=== PATIENT | female | born 1930 | race Hispanic/Latino ===

== ENCOUNTER 2017-03-26 09:11 | Emergency (ER) | payer MEDICARE, BC ==
[2017-03-26 09:35] VITALS: PULSE 82; RESP 17; TEMP 98.4; O2SAT 98
--- NOTE | 2017-03-26 09:39 | C.PDOC ---
History Of Present Illness 86 yr old female presents to the ER with complaints of worsening painful rash to the right side for the past 2 days. Patient denies any associated symptoms, fever, chest pain, SOB, vision changes, nausea, vomiting or headache. Time Seen by Provider: 03/26/17 09:18 Chief Complaint (Nursing): Abnormal Skin Integrity History Per: Patient History/Exam Limitations: no limitations Onset/Duration Of Symptoms: Days (Worsening for 2 days ) Current Symptoms Are (Timing): Still Present Past Medical History Reviewed: Historical Data, Nursing Documentation, Vital Signs Vital Signs: Last Vital Signs Temp 98.4 F 03/26/17 09:33 Pulse 82 03/26/17 09:33 Resp 17 03/26/17 09:33 BP Pulse Ox 98 03/26/17 09:45 - Medical History PMH: HTN, Hypercholesterolemia, Hyperthyroidism - [facility] Procedures CLOSURE SKIN & SUBCUTANEOUS NEC (04/23/15) TETANUS TOXOID ADMINIST (04/23/15) Family History: States: No Known Family Hx - Social History Hx Alcohol Use: No Hx Substance Use: No - Immunization History Hx Tetanus Toxoid Vaccination: No Hx Influenza Vaccination: No Hx Pneumococcal Vaccination: No Review Of Systems Except As Marked, All Systems Reviewed And Found Negative. Constitutional: Negative for: Fever Eyes: Negative for: Vision Change Cardiovascular: Negative for: Chest Pain Respiratory: Negative for: Shortness of Breath Gastrointestinal: Negative for: Nausea, Vomiting Skin: Positive for: Rash (Painful rash to the right side) Neurological: Negative for: Headache Physical Exam - Physical Exam Appears: Non-toxic, No Acute Distress Skin: Warm, Dry, Rash (Visicular rash to the right lateral abdomen, right chest wall, extending to the back in a dermatomal distribution.) Head: Atraumatic, Normacephalic Eye(s): bilateral: Normal Inspection, PERRL, EOMI Oral Mucosa: Moist Tongue: Normal Appearing, No Swelling Lips: Normal Appearing, No Swelling Throat: Normal, No Erythema, No Exudate Chest: Symmetrical, No Tenderness Cardiovascular: Rhythm Regular, No Murmur Respiratory: Normal Breath Sounds, No Rales, No Wheezing Gastrointestinal/Abdominal: Normal Exam, Soft, No Tenderness, No Guarding, No Rebound Extremity: Normal ROM, No Tenderness, No Deformity, No Swelling Neurological/Psych: Oriented x3, Normal Speech, Normal Motor ED Course And Treatment O2 Sat by Pulse Oximetry: 98 Disposition - Disposition Referrals: Akira Caldera MD [Staff Provider] - Disposition: HOME/ ROUTINE Disposition Time: 09:50 Condition: GOOD Additional Instructions: Please follow up with your doctor. Return to the ER for any worsening symptoms, fever, rash that spreads to the other side or multiple sites on your body, or for any other concerns. Prescriptions: Acetaminophen with Codeine [Tylenol with Codeine #3 Tablet] 1 each PO Q4H PRN # 10 tablet PRN Reason: Pain, Moderate (4-7) Acyclovir [Zovirax] 800 mg PO 5XD #35 tab Instructions: Shingles (ED) Forms: General Discharge Instructions - Clinical Impression Clinical Impression: Herpes zoster - Scribe Statement The provider has reviewed the documentation as recorded by the Judibomar Roth Provider Attestation: All medical record entries made by the Judibomar were at my direction and personally dictated by me. I have reviewed the chart and agree that the record accurately reflects my personal performance of the history, physical exam, medical decision making, and the department course for this patient. I have also personally directed, reviewed, and agree with the discharge instructions and disposition.
== END 2017-03-26 09:51 | disposition home or self-care (01) ==
LOC: C.ER 09:11
DX: B02.9 Zoster without complications (principal)

== ENCOUNTER 2017-12-28 18:24 | Emergency (ER) | payer MEDICARE, BC ==
[2017-12-28 18:32] VITALS: TEMP 98
[2017-12-28] MEDS ORDERED: Enalaprilat 2.5 MG/2 ML IVP STA (18:51)
[2017-12-28 19:09] LABS: BASO % 0.4 % (0.0-2.0); EOS # 0.1 K/uL (0.0-0.7); EOS % 1.5 % (0.0-4.0); HEMOGLOBIN 13.8 g/dL (11.0-16.0); LYMPH # 1.6 K/uL (1.0-4.3); LYMPH % 26.3 % (20.0-40.0); MEAN CELL VOLUME 89.4 fL (81.0-99.0); MEAN CORPUSCULAR HEMOGLOBIN 30.5 pg (27.0-31.0); MEAN CORPUSCULAR HGB CONC 34.1 g/dL (33.0-37.0); MEAN PLATELET VOLUME 9.6 fL (7.2-11.7); MONO # 0.5 K/uL (0.0-0.8); MONO % 8.4 % (0.0-10.0); NEUT # 3.8 K/uL (1.8-7.0); NEUT % 63.4 % (50.0-75.0); NRBC % 0.1 % (0.0-2.0); RBC 4.54 Mil/uL (3.80-5.20); RED CELL DISTRIBUTION WIDTH 14.3 % (11.5-14.5); WHITE BLOOD COUNT 5.9 K/uL (4.8-10.8)
[2017-12-28 19:22] LABS: ALB/GLOB RATIO 1.2 (1.0-2.1); ALBUMIN 4.7 g/dL (3.5-5.0); ALT/SGPT 28 U/L (9-52); AST/SGOT 40 U/L (14-36); BLOOD UREA NITROGEN 18 mg/dL (7-17); CALCIUM 9.9 mg/dl (8.6-10.4); GFR AFRICAN-AMERICAN > 60; GFR NON-AFRICAN AMERICAN > 60
[2017-12-28 19:24] VITALS: PULSE 60; RESP 20
--- NOTE | 2017-12-28 20:15 | C.PDOC ---
History Of Present Illness Pt c/o high blood pressure. She is on Amlodipine 10mg daily and she was started on Metoprolol 25mg daily this morning by her doctor. This evening her BP was elevated again so she came to the ED. Time Seen by Provider: 12/28/17 18:40 Chief Complaint (Nursing): High Blood Pressure History Per: Patient, Family Onset/Duration Of Symptoms: Days (3), Waxing/Waning Current Symptoms Are (Timing): Still Present Quality Of Symptoms: Asymptomatic Severity: Moderate Additional History Per: Prior Records Past Medical History Reviewed: Historical Data, Nursing Documentation, Vital Signs Vital Signs: Last Vital Signs Temp 98 F 12/28/17 18:28 Pulse 60 12/28/17 19:23 Resp 20 12/28/17 19:23 BP 145/66 12/28/17 19:44 Pulse Ox 98 12/28/17 19:23 - Medical History PMH: HTN, Hypercholesterolemia, Hyperthyroidism Other PMH: Post Shingles neuralgia - [facility] Procedures CLOSURE SKIN & SUBCUTANEOUS NEC (04/23/15) TETANUS TOXOID ADMINIST (04/23/15) Family History: States: Unknown Family Hx - Social History Hx Alcohol Use: No Hx Substance Use: No - Immunization History Hx Tetanus Toxoid Vaccination: No Hx Influenza Vaccination: No Hx Pneumococcal Vaccination: No Review Of Systems Except As Marked, All Systems Reviewed And Found Negative. Constitutional: Negative for: Fever, Weakness Cardiovascular: Negative for: Chest Pain Respiratory: Negative for: Shortness of Breath Gastrointestinal: Negative for: Vomiting, Abdominal Pain Musculoskeletal: Negative for: Neck Pain, Back Pain Skin: Negative for: Rash Neurological: Negative for: Weakness, Numbness, Seizures, Altered Mental Status Physical Exam - Physical Exam Appears: Non-toxic, No Acute Distress Skin: Normal Color, Warm, Dry Head: Atraumatic Eye(s): bilateral: PERRL, EOMI Neck: Normal ROM, Supple Cardiovascular: Rhythm Regular Respiratory: Normal Breath Sounds, No Accessory Muscle Use Gastrointestinal/Abdominal: Soft, No Tenderness Back: No CVA Tenderness Extremity: Normal ROM Neurological/Psych: Oriented x3, Normal Motor, Normal Sensation ED Course And Treatment - Laboratory Results Result Diagrams: 12/28/17 19:06 12/28/17 19:06 Lab Interpretation: No Acute Changes ECG: Interpreted By Me, Viewed By Me ECG Rhythm: Sinus Rhythm, Nonspecific Changes Rate From EC O2 Sat by Pulse Oximetry: 98 Pulse Ox Interpretation: Normal Progress Note: BP improved without any additional medication. Reassessment Condition: Improved Disposition Discussed With .: Akira Caldera (PMD) Comment: He want pt to be started on Losartan 25mg daily. He will f/up with the patient. Doctor Will See Patient In The: Hospital Counseled Patient/Family Regarding: Studies Performed, Diagnosis, Need For Followup, Rx Given - Disposition Referrals: Akira Caldera MD [Staff Provider] - Disposition: HOME/ ROUTINE Disposition Time: 20:18 Condition: IMPROVED Additional Instructions: Follow up with your doctor. Return to the ER if you develop weakness, numbness, chest pain, shortness of breath, worsening of symptoms or if you have any other concerns. Prescriptions: Losartan [Cozaar] 25 mg PO DAILY #30 tab Instructions: High Blood Pressure (DC) - Clinical Impression Clinical Impression: Uncontrolled hypertension
[2017-12-28 20:35] VITALS: O2SAT 96
[2017-12-28 21:12] VITALS: BP 139/62
== END 2017-12-28 21:41 | disposition home or self-care (01) ==
LOC: C.ER 18:24
DX: I10 Essential (primary) hypertension (principal)